=== PATIENT | female | born 1980 | race Caucasian/White ===

== ENCOUNTER 2025-03-30 07:12 | Outpatient (CLI) | payer BC | END 2025-03-30 07:13 | disposition home or self-care (01) | LOC: CSHCP 07:12 | PROVIDERS: ATTEND Internal Medicine | DX: R91.8 Other nonspecific abnormal finding of lung field (principal) | CPT/HCPCS: 94010; 94726; 94729; 94760 ==

== ENCOUNTER 2025-05-13 15:23 | Outpatient (CLI) | payer BC | END 2025-05-13 15:24 | disposition home or self-care (01) | LOC: CSHCT 15:23 | PROVIDERS: ATTEND Student in an Organized Health Care Education/Training Program | DX: C34.12 Malignant neoplasm of upper lobe, left bronchus or lung (principal); J98.11 Atelectasis | CPT/HCPCS: 71250 ==